=== PATIENT | female | born 1970 | race Two or more races ===

== ENCOUNTER 2022-10-30 08:14 | Outpatient (REF) | payer OTHER, SELFPAY ==
[2022-11-05 23:13] LABS: Estradiol Ultra Sensitive 4 pg/mL
== END 2022-10-30 08:15 | disposition home or self-care (01) ==
LOC: HO.LAB 08:14
PROVIDERS: Visit Provider Obstetrics & Gynecology
DX: Z78.0 Asymptomatic menopausal state (principal)
CPT/HCPCS: 36415; 82670; 83001

== ENCOUNTER 2022-11-10 10:03 | Outpatient (AMB) | payer OTHER, SELFPAY ==
[2022-11-10 09:54] VITALS: BP 114/69; PULSE 74; RESP 14; O2SAT 99; BMI 29.1
--- NOTE | 2022-11-10 09:54 | A.OFFVIS_ITS ---
Intake Vital Signs 11/10/22 09:54 Height 5 ft 4 in Weight 169 lb 6 oz BMI 29.1 BP 114/69 Blood Pressure Location Lt brachial Position Sitting Respiration 14 Pulse 74 Pulse Source Pulse Oximeter Pulse Oximetry (%) 99 Oxygen Delivery Method Room Air Intake Visit Reasons: Sacroiliac Joint Pain Allergies No Known Allergies Allergy (Verified 11/10/22 09:55) HPI HPI Comments History of Present Illness Details Miriam female presents to the office today for evaluation management of her right lower back pain. Patient reports that she has been suffering with lower back pain for many years, pain is worse today after she lifted something over the weekend. She reports the pain radiates into her buttocks, denies radiation down her lower extremities. Patient denies numbness tingling or weakness of her lower extremities. Pain today is reported as 10/10 stabbing and burning. Patient completed physical therapy approximately 6 months ago without relief. She has been taking Advil and Tylenol without relief of her symptoms. She states that years ago she had injections which significantly improved her pain. Patient denies red flag symptoms including loss of bowel, bladder or saddle anesthesia. In terms of muscle damage condition it is described as hot, burning, stabbing, sharp and squeezing. Pain is negatively impacting patient's ability to sleep, walk and perform her normal work. Review of Systems Const All systems reviewed & are unremarkable except as noted in HPI and below Physical Exam Vital Signs: Last Vital Signs Pulse 74 11/10/22 09:54 Resp 14 11/10/22 09:54 BP 114/69 11/10/22 09:54 Pulse Ox 99 11/10/22 09:54 Oxygen Delivery Method Room Air 11/10/22 09:54 BMI result Body Mass Index 29.1 General: awake, alert, oriented. Answers questions appropriately. Fully engaged in examination. Skin: warm, dry, intact HEENT: Normocephalic. Hearing intact. Cardiac: External chest normal in appearance. Respiratory: No cough, audible wheezing or stridor. Abdomen: without gross distension. MS: No obvious swelling or deformities. Able to stand on bilateral tiptoes and bilateral heels.? Able to transition from sit to stand unassisted. Ambulates with bilaterally normal heel strike and toe off Tender to palpation over right PSIS ROM: limited secondary to pain with extension to 10 degrees. flexion to 60 degrees Strength: 5/5 BLE Sensation: intact and symmetric BLE Straight leg raises with and without dorsiflexion negative bilaterally SALINA negative bilaterally Thigh thrust positive on right Gaenslens positive on right SI compression positive on right Neurological: Oriented to person, place, time and situation. Thought process intact. No gait abnormalities appreciated. Psychiatric: Appropriate mood and affect. Good judgment and insight. Assessment & Plan Assessment & Plan (1) Sacroiliac joint dysfunction of right side: Code(s): M53.3 - Sacrococcygeal disorders, not elsewhere classified Plan Miriam is a very pleasant 52-year-old female who presented to the office today for evaluation and management of her right lower back pain. History, physical exam and provocative testing consistent with right sacroiliac joint dysfunction. Patient has failed conservative treatment including physical therapy, topical ointments, NSAIDs and Tylenol. Will trial tizanidine 2 mg p.o. b.i.d. p.r.n. Discussed options for treatment including diagnostic interventional testing, steroid injections, peripheral nerve stimulation with Sprint, RFA and more permanent neuromodulation. She reports sacroiliac joint injections several years ago helped her with this pain. She would like to repeat the injection. Will schedule for therapeutic right sacroiliac joint injection with local anesthetic. All questions and concerns have been answered and patient agrees with the plan. Follow up after injections and sooner if needed. Medications: New tizanidine May cause drowsiness. Do not drive while taking this medication. Do not combine with alcohol or other [employer] depressants. 2 mg PO BID PRN 30 tabs 0RF muscle spasticity Coding Level of Care Code New Pt Level 4 (29285) Diagnoses Sacroiliac joint dysfunction of right side M53.3
== END 2022-11-10 10:16 | disposition home or self-care (01) ==
PROVIDERS: Visit Provider Registered Nurse Emergency
DX: M53.3 Sacrococcygeal disorders, not elsewhere classified (principal)
CPT/HCPCS: 99204

== ENCOUNTER → 2022-11-10 10:03 | Outpatient (BNVA) | payer OTHER, SELFPAY | PROVIDERS: Visit Provider Registered Nurse Emergency ==

== ENCOUNTER 2022-11-11 06:13 | Outpatient (REF) | payer OTHER, SELFPAY ==
--- NOTE | ~2022-11-11 | FL_ITS ---
EXAMINATION: XR FLUOROSCOPY WITH IMAGES CLINICAL INFORMATION: Sacrococcygeal disorders, not elsewhere classified. COMPARISON: None available. TECHNIQUE: Fluoroscopy Supervised By: Dr. Cordell Cha. Fluoroscopy Time: 0.0 minutes. Cumulative Dose: 1.32 mGy. DAP: 0.152 Gycm2. Images: 2. FINDINGS: Images demonstrate needle placement projecting over the right sacroiliac joint FL/FL guidance in treatment room IMPRESSION: Fluoroscopy guidance for pain management procedure
== END 2022-11-11 06:14 | disposition home or self-care (01) ==
LOC: CF 06:13
PROVIDERS: Visit Provider Internal Medicine
DX: M53.3 Sacrococcygeal disorders, not elsewhere classified (principal)
CPT/HCPCS: 27096; J1020

== ENCOUNTER 2022-11-11 10:23 | Outpatient (AMB) | payer OTHER, SELFPAY ==
[2022-11-11 10:31] VITALS: BP 120/66; PULSE 62; RESP 14; O2SAT 100
--- NOTE | 2022-11-11 10:31 | A.OFFVIS_ITS ---
Intake Vital Signs 11/11/22 10:31 11/11/22 10:58 BP 120/66 98/58 L Blood Pressure Location Lt brachial Lt brachial Position Sitting Sitting Respiration 14 14 Pulse 62 62 Pulse Source Pulse Oximeter Pulse Oximeter Pulse Oximetry (%) 100 100 Oxygen Delivery Method Room Air Room Air Intake Visit Reasons: right theraputic SIJ inj Allergies No Known Allergies Allergy (Verified 11/11/22 10:32) HPI right theraputic SIJ inj HPI Details Patient presents for scheduled procedure. Denies any recent cough, cold, infection, fever or other significant changes in medical history since last office visit. Physical Exam Vital Signs: Last Vital Signs Pulse 62 11/11/22 10:31 Resp 14 11/11/22 10:31 BP 120/66 11/11/22 10:31 Pulse Ox 100 11/11/22 10:31 Oxygen Delivery Method Room Air 11/11/22 10:31 Office Procedures Joint Injection/Drain Joint Injection/Drain Details: Sacroiliac Joint Injection, Right The procedure, its benefits, and its risks were explained and written informed consent was obtained from the patient. Immediately prior to starting the procedure, a time-out safety check was conducted. The patient's identification, procedure name, procedure site, and procedure laterality were confirmed with the patient. ? Patient was placed prone on the fluoroscopy table and the lumbosacral area was prepped using ChloraPrep and draped with sterile drape in standard fashion. The C-arm was rotated in a contralateral oblique fashion until the medial border of the iliac crest no longer foreshadowed the posterior sacroiliac joint line. The skin and subcutaneous tissue was anesthetized using 1 mL of 0.75% plain lidocaine with 1.5-inch 25-gauge needle in the middle region of the joint line.? A 3.5-inch 22-gauge spinal needle with small bend on the tip was slowly advanced towards the joint line, coaxial to the x-ray beam. Once bony content was obtained, the needle was easily slid into the intra-articular space.? Intra- articular needle position was confirmed using lateral fluoroscopy.?A total volume of 2.5mL of solution containing 40 mg Depomedrol and rest 0.5% of ropivacaine was injected intra-articularly. The stylet was reinserted and needle was removed. The patient tolerated the procedure well. Patient denied any lower extremity weakness or numbness. Patient was observed for 30 min and was discharged after fulfilling the standard discharge criteria. Coding 21806 - Sacroiliac Procedure code (CPT) selection complete Results Reviewed Results Reviewed: 11/11/22 10:40 Lidocaine HCl 2 % MPF [Xylocaine 2 % MPF] 5 ml .ROUTE .STK-MED ONE methylPREDNISolone acetate [DEPO-MedroL] 40 mg .ROUTE .STK-MED ONE Assessment & Plan Assessment & Plan (1) Sacroiliac joint dysfunction of right side: Code(s): M53.3 - Sacrococcygeal disorders, not elsewhere classified Plan Patient is status post right intra-articular SIJ steroid injection. Patient tolerated procedure well and was discharged home in stable condition with discharge instructions. All questions were answered. We will follow-up via telephone or in clinic to assess response to therapy. A follow-up appointment was made during today's visit. Coding Level of Care Code Procedure Only Diagnoses Sacroiliac joint dysfunction of right side M53.3 CPT Codes Coding - Joint 9: 51047 - Sacroiliac ([id number])
[2022-11-11 10:58] VITALS: BP 98/58; PULSE 62; RESP 14; O2SAT 100
== END 2022-11-11 11:33 | disposition home or self-care (01) ==
LOC: HO.PMCPRC 10:23
PROVIDERS: Visit Provider Internal Medicine
DX: M53.3 Sacrococcygeal disorders, not elsewhere classified (principal)
CPT/HCPCS: 27096

== ENCOUNTER 2023-01-21 11:34 | Outpatient (AMB) | payer OTHER, SELFPAY ==
--- NOTE | 2023-01-21 11:55 | AM.OFFWIN_ITS ---
Intake Vital Signs 01/21/23 11:56 Height 5 ft 4 in Weight 165 lb BMI 28.3 BP 114/60 Blood Pressure Location Rt brachial Position Sitting Pulse 72 Pulse Source Pulse Oximeter Temp 96.5 F L Temp Source Temporal Artery Scan Pulse Oximetry (%) 98 Oxygen Delivery Method Room Air Intake Visit Reasons: Needs Asthma Med ([phone]) Intake Note: Pt is here c/o asthma flare ups. Patient Tobacco Use Status: Never used Tobacco Allergies No Known Allergies Allergy (Verified 01/21/23 11:56) Do you need a note to return to daycare/school/sports/work: No HPI HPI Comments History of Present Illness Details This is a 52-year-old female with a past medical history of asthma presenting for evaluation of a cough and increasing shortness of breath. Patient states that she visited her grandson in [place] last week, they had a dog in their home which she is allergic to and she feels that this has triggered her asthma. Patient does not currently have a primary care provider of record and does not have an albuterol inhaler at home. Patient denies having any fevers, chills, chest pain, hemoptysis or sputum production. [facility] Social History Patient Tobacco Use Status: Never used Tobacco Review of Systems Const Denies chills, Denies fatigue, Denies fever(s) and Denies night sweats ENT Reports no additional complaints Card Reports no additional complaints and Reports dyspnea Resp Reports cough, Denies hemoptysis, Denies excessive phlegm production, Reports dyspnea and Denies wheezing Endo Denies fatigue Aller/Immun Denies wheezing Physical Exam Vital Signs: Last Vital Signs Temp 96.5 F L 01/21/23 11:56 Pulse 72 01/21/23 11:56 BP 114/60 01/21/23 11:56 Pulse Ox 98 01/21/23 11:56 Oxygen Delivery Method Room Air 01/21/23 11:56 BMI result Body Mass Index 28.3 Patient is not hypoxic. Const General: cooperative, healthy appearing and comfortable; No no acute distress Nutritional Appearance: average body habitus Orientation/consciousness: patient oriented x3 Limitations: no limitations HEENT Head: Yes normal to inspection Ears: hearing grossly normal bilaterally, external ears normal, TM's normal bilaterally and EAC's normal General nose exam: Normal external nose present Face and sinus: Yes normal facial exam and Yes sinuses nontender Mouth: Normal oral and palatal mucosa present Teeth and gingiva: dentition normal Throat: Yes posterior oropharynx normal Eyes Eyelids: Yes eyelids normal Conjunctivae: conjunctivae normal Sclerae: sclerae normal Corneas: corneas normal Pupils: Equal, round and reactive pupils present EOM: EOMs intact bilaterally Neck Lymphatic: no lymphadenopathy noted Resp Effort & Inspection: normal respiratory effort and able to speak in complete sentences Auscultation: clear to auscultation bilaterally, no wheezes and lung sounds not diminished Cardio Rate: regular rate Rhythm: regular rhythm Neuro General: patient oriented x3 Cranial nerves: Yes Equal, round and reactive pupils present Psych Appearance: grossly normal Mental Status: mental status grossly normal Insight: Good insight present (Psych) Judgement: Good judgement present (Psych) Assessment & Plan Assessment & Plan (1) Asthma: Code(s): J45.909 - Unspecified asthma, uncomplicated Plan Albuterol inhaler will be prescribed; patient to make an appointment for PCP intake for ongoing management. Medications: New albuterol sulfate 90 mcg/actuation 2 puffs inhalation Q6H PRN 8.5 grams 0RF shortness of breath or wheezing Coding Level of Care Code New Pt Level 3 (63952) Diagnoses Asthma J45.909 Time Spent (min) 20
[2023-01-21 11:56] VITALS: BP 114/60; PULSE 72; TEMP 35.8; O2SAT 98; BMI 28.3
== END 2023-01-21 14:43 | disposition home or self-care (01) ==
PROVIDERS: Visit Provider Physician Assistant
DX: J45.909 Unspecified asthma, uncomplicated (principal)
CPT/HCPCS: 99203

== ENCOUNTER 2023-02-02 14:28 | Outpatient (AMB) | payer OTHER, SELFPAY ==
--- NOTE | 2023-02-02 15:42 | AM.OFFWIN_ITS ---
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 She tells me she was seen here in told this may be asthma was given an albuterol inhaler with little to no relief. Patient reports travel to [place] few weeks ago however cough and symptoms were present before this. Initially she contributed her symptoms to a dog in [place] that may have worsened them however she feels like now it just this is getting worse. Patient reports her cough is nonproductive, very uncomfortable. 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 No history of DVT or PE, nonsmoker not on hormone replacement, no history of malignancy. Physical examination unremarkable patient well-appearing. This is likely bronchitis versus viral illness versus post COVID. Unlikely pulmonary embolism patient without significant risk factors, not tachycardic, hypoxic or tachypneic, well appearing. Unlikely ACS, dissection. No signs of acute respiratory distress Discharge patient home with treatment for bronchitis, antibiotics, prednisone and albuterol. Educated patient on diagnosis and treatment plan, answered all question, patient verbalizes understanding. At this time patient will be discharged home, advised to return with new or worsening symptoms. Educated on worrisome signs and symptoms and when to return. At this time I feel comfortable discharge home. [facility] Social History Patient Tobacco Use Status: Never used Tobacco Review of Systems Const Details: Constitutional : No Weight loss, No Fever, No Chills, + Fatigue, + Malaise ENT/Mouth : No sore throat, No Rhinorrhea Eyes: No Eye Pain, No Swelling, No Redness Cardiovascular : + Chest Pain, + SOB, No Dyspnea on Exertion, No Orthopnea, No Edema, No Palpitations Respiratory : + Cough, No Sputum, + Wheezing Gastrointestinal : No Nausea, No Vomiting, No Diarrhea, No Constipation, No abdominal Pain, No Hematochezia, No Melena Genitourinary : No Dysuria, No Urinary Frequency, No Hematuria, Musculoskeletal : No joint pain, No Myalgias, No Joint Swelling Skin : No Skin Lesions, No rash Neuro : No Weakness, No Numbness, No Dizziness, No Headache Psych : No Anxiety/Panic, No Depression Heme/Lymph: No Bruising, No Bleeding,No Lymphadenopathy Endocrine : No Polyuria, No Polydipsia All other systems reviewed and are negative All systems reviewed & are unremarkable except as noted in HPI and below Physical Exam Vital Signs: Last Vital Signs Temp 96.7 F L 02/02/23 15:43 Pulse 67 02/02/23 15:43 BP 120/72 02/02/23 15:43 Pulse Ox 98 02/02/23 15:43 Oxygen Delivery Method Room Air 02/02/23 15:43 BMI result Body Mass Index 28.8 Vital signs stable Appearance: Alert.? Oriented X3.? No acute distress.? Head: Normocephalic, atraumatic, no step-offs or deformities Eyes: Pupils equal, round and reactive to light.? Neck: Normal inspection.? Neck supple.? CVS: Normal heart rate and rhythm.? Pulses normal.? Respiratory: No respiratory distress.? Breath sounds normal.? Skin: Skin warm and dry.? Normal skin color.? Normal skin turgor.? Extremities: No lower extremity edema.? No calf ttp, negative homnan b/l. 5/5 strength to bilateral upper and lower extremities Back: No midline tenderness, no C-spine tenderness, full range of motion, no CVA tenderness bilaterally Neuro: Oriented X 3.? No motor deficit.? No sensory deficit. CN 2-12 intact Assessment & Plan Assessment & Plan (1) Bronchitis: Code(s): J40 - Bronchitis, not specified as acute or chronic Plan Take your medications as prescribed. If you were prescribed antibiotics today, it is important that you take your medication to their entirety, do not skip any doses, do not finish them early. Follow-up with your primary care provider this week. Return to the emergency department with new or worsening symptoms. Such as fevers, chills, chest pain, shortness of breath, nausea, vomiting, dizziness, headache, vision changes, lethargy In case of emergency call 911 Medications: New doxycycline hyclate 100 mg PO BID 14 caps 0RF 7 days prednisone 40 mg (2 x 20 mg) PO DAILY 10 tabs 0RF 5 days albuterol sulfate 90 mcg/actuation 2 puffs inhalation Q6H PRN 6.7 grams 0RF shortness of breath or wheezing Coding Level of Care Code Est Pt Level 3 (56225) Diagnoses Bronchitis J40
[2023-02-02 15:43] VITALS: BP 120/72; PULSE 67; TEMP 35.9; O2SAT 98; BMI 28.8
== END 2023-02-02 16:18 | disposition home or self-care (01) ==
PROVIDERS: Visit Provider Physician Assistant
DX: J40 Bronchitis, not specified as acute or chronic (principal)
CPT/HCPCS: 99213

== ENCOUNTER 2023-03-04 14:54 | Outpatient (AMB) | payer OTHER, SELFPAY ==
[2023-03-04 15:03] VITALS: BP 116/66; PULSE 60; RESP 16; O2SAT 97; BMI 28.7
--- NOTE | 2023-03-04 15:03 | A.OFFVIS_ITS ---
Intake Vital Signs 03/04/23 15:03 Height 5 ft 4 in Weight 167 lb BMI 28.7 BP 116/66 Blood Pressure Location Lt brachial Position Sitting Respiration 16 Pulse 60 Pulse Source Pulse Oximeter Pulse Oximetry (%) 97 Oxygen Delivery Method Room Air Intake Visit Reasons: Elbow pain Allergies No Known Allergies Allergy (Verified 03/04/23 15:03) HPI HPI Comments History of Present Illness Details On has a very pleasant 52-year-old female who presents to the office today for evaluation of management of her acute bilateral elbow pain Patient denies injury, she reports 1-2 weeks of bilateral elbow pain, left worse than the right. She states pain with certain movements of her elbow. Describes the pain as sharp. Pain is exacerbated by activities at work including carrying around a laptop but she also reports even lifting a cup causes her pain. She has been taking Advil dual without improvement of her symptoms. Pain today is rated as an 8/10, constant throughout the day. [facility] Social History Patient Tobacco Use Status: Never used Tobacco Review of Systems Const All systems reviewed & are unremarkable except as noted in HPI and below Physical Exam Vital Signs: Last Vital Signs Pulse 60 03/04/23 15:03 Resp 16 03/04/23 15:03 BP 116/66 03/04/23 15:03 Pulse Ox 97 03/04/23 15:03 Oxygen Delivery Method Room Air 03/04/23 15:03 BMI result Body Mass Index 28.7 General: awake, alert, oriented. Answers questions appropriately. Fully engaged in examination. Skin: warm, dry, intact HEENT: Normocephalic. Hearing intact. Cardiac: External chest normal in appearance. Respiratory: No cough, audible wheezing or stridor. Abdomen: without gross distension. MS: No obvious swelling or deformities. Neurological: Oriented to person, place, time and situation. Thought process intact. No gait abnormalities appreciated. Psychiatric: Appropriate mood and affect. Good judgment and insight. Extrem Right upper extremity: elbow/forearm Details: normal to inspection, tenderness and normal ROM; no swelling and no unusual warmth Left upper extremity: elbow/forearm Details: normal to inspection and normal ROM; no tenderness, no swelling and no unusual warmth Assessment & Plan Assessment & Plan (1) Left elbow pain: Code(s): M25.522 - Pain in left elbow (2) Right elbow pain: Code(s): M25.521 - Pain in right elbow Plan Miriam presented to the office today for evaluation and management of her acute bilateral elbow pain. Xray ordered for further eval Referral placed to orthopedics. Patient declines PT/OT at this time, will do HEP. Diclofenac 50mg po BID, do not take other NSAIDs Follow up after xrays, sooner if needed. Orders: Orders XR elbow LT 2V Today M25.522 - Pain in left elbow XR elbow RT 2V Today M25.521 - Pain in right elbow Referrals Orthopedics Referral M25.521 - Pain in right elbow, M25.522 - Pain in left elbow Medications: New diclofenac potassium 50 mg PO BID 30 tabs 0RF Coding Level of Care Code Est Pt Level 4 (65964) Diagnoses Left elbow pain M25.522 Right elbow pain M25.521
== END 2023-03-04 15:13 | disposition home or self-care (01) ==
PROVIDERS: Visit Provider Registered Nurse Emergency
DX: M25.522 Pain in left elbow (principal); M25.521 Pain in right elbow
CPT/HCPCS: 99214

== ENCOUNTER → 2023-03-04 14:54 | Outpatient (BNVA) | payer OTHER, SELFPAY | PROVIDERS: Visit Provider Registered Nurse Emergency ==

== ENCOUNTER 2023-03-08 11:35 | Outpatient (REF) | payer OTHER, SELFPAY ==
--- NOTE | ~2023-03-08 | XR_ITS ---
STUDY: Bilateral lower lobes INDICATION: Solid bilateral elbow pain TECHNIQUE: 3 view each elbow FINDINGS: Right: No fracture or dislocation. Calcification versus spur right lateral epicondyle. Soft tissues are unremarkable. Left: No fracture or dislocation. Mild coronoid process spurring. Question mild spurring lateral epicondyle versus calcification. TECHNIQUE: No acute bony pathology bilateral elbows. Bilateral spurring, question epicondylitis.
== END 2023-03-08 11:36 | disposition home or self-care (01) ==
LOC: HO.XRAY 11:35
PROVIDERS: Visit Provider Registered Nurse Emergency
DX: M25.522 Pain in left elbow (principal); M25.521 Pain in right elbow
CPT/HCPCS: 73070

== ENCOUNTER 2023-03-18 13:56 | Outpatient (AMB) | payer OTHER, SELFPAY ==
--- NOTE | 2023-03-18 14:04 | A.OFFVIS_ITS ---
Intake Vital Signs 03/18/23 14:05 Height 5 ft 4 in Weight 168 lb 4 oz BMI 28.9 BP 131/70 Blood Pressure Location Lt brachial Position Sitting Respiration 14 Pulse 61 Pulse Source Pulse Oximeter Pulse Oximetry (%) 99 Oxygen Delivery Method Room Air Intake Visit Reasons: discuss xray results Allergies No Known Allergies Allergy (Verified 03/18/23 14:04) HPI HPI Comments History of Present Illness Details Miriam presents back to the office today for follow up, review of recent XRays Bilateral elbow xrays reviewed, results as per below. Patient reports pain persists, she has been taking the diclofenac with improvement. Pain today 5/10. She does not have an appt with orthopedics yet, she will reach out to their office to schedule. Prior: Miriam is a very pleasant 52-year-old female who presents to the office today for evaluation of management of her acute bilateral elbow pain Patient denies injury, she reports 1-2 weeks of bilateral elbow pain, left worse than the right. She states pain with certain movements of her elbow. Describes the pain as sharp. Pain is exacerbated by activities at work including carrying around a laptop but she also reports even lifting a cup causes her pain. She has been taking Advil dual without improvement of her symptoms. Pain today is rated as an 8/10, constant throughout the day. [facility] Social History Patient Tobacco Use Status: Never used Tobacco Review of Systems Const All systems reviewed & are unremarkable except as noted in HPI and below Physical Exam Vital Signs: Last Vital Signs Pulse 61 03/18/23 14:05 Resp 14 03/18/23 14:05 BP 131/70 03/18/23 14:05 Pulse Ox 99 03/18/23 14:05 Oxygen Delivery Method Room Air 03/18/23 14:05 BMI result Body Mass Index 28.9 General: awake, alert, oriented. Answers questions appropriately. Fully engaged in examination. Skin: warm, dry, intact HEENT: Normocephalic. Hearing intact. Cardiac: External chest normal in appearance. Respiratory: No cough, audible wheezing or stridor. Abdomen: without gross distension. MS: No obvious swelling or deformities. Neurological: Oriented to person, place, time and situation. Thought process in tact. No gait abnormalities appreciated. Psychiatric: Appropriate mood and affect. Good judgment and insight. Extrem Right upper extremity: elbow/forearm Details: normal to inspection, tenderness and normal ROM; no swelling and no unusual warmth Left upper extremity: elbow/forearm Details: normal to inspection and normal ROM; no tenderness, no swelling and no unusual warmth Results Reviewed Results Reviewed: 03/08/2023 Bilateral elbow XR FINDINGS: Right: No fracture or dislocation. Calcification versus spur right lateral epicondyle. Soft tissues are unremarkable. Left: No fracture or dislocation. Mild coronoid process spurring. Question mild spurring lateral epicondyle versus calcification. TECHNIQUE: No acute bony pathology bilateral elbows. Bilateral spurring, question epicondylitis. Assessment & Plan Assessment & Plan (1) Left elbow pain: Code(s): M25.522 - Pain in left elbow (2) Right elbow pain: Code(s): M25.521 - Pain in right elbow Plan Miriam presented to the office today for follow up bilateral elbow pain. Xray results reviewed, as per above Per workload ortho has attempted several times to reach patient to schedule appt without success; she will contact their office to make an appt. Patient declines PT/OT at this time, will do HEP. Advised on stretches to perform for epicondylitis. Diclofenac 50mg po BID, do not take other NSAIDs. Refill sent today. Follow up as needed. Medications: Changed From diclofenac potassium 50 mg PO BID 30 tabs 0RF To diclofenac potassium 50 mg PO BID 30 days 60 tabs 0RF Coding Level of Care Code Est Pt Level 4 (17037) Diagnoses Left elbow pain M25.522 Right elbow pain M25.521
[2023-03-18 14:05] VITALS: BP 131/70; PULSE 61; RESP 14; O2SAT 99; BMI 28.9
== END 2023-03-18 14:19 | disposition home or self-care (01) ==
PROVIDERS: Visit Provider Registered Nurse Emergency
DX: M25.522 Pain in left elbow (principal); M25.521 Pain in right elbow
CPT/HCPCS: 99214

== ENCOUNTER → 2023-03-18 13:56 | Outpatient (BNVA) | payer OTHER, SELFPAY | PROVIDERS: Visit Provider Registered Nurse Emergency ==

== ENCOUNTER 2023-05-17 12:40 | Outpatient (AMB) | payer OTHER, SELFPAY ==
--- NOTE | 2023-05-17 12:49 | A.OFFVIS_ITS ---
Intake Vital Signs 05/17/23 12:55 Height 5 ft 4 in Weight 168 lb BMI 28.8 Handedness Right Intake Visit Reasons: New Pt -Left elbow pain Intake Note: Miriam is a 53 year old right hand dominant female who presents today as a new patient for a evaluation for her left elbow pain. Patient reports ongoing pain for 2 + months. She states that her pain is worse at night. Currently, she is having a lot of pain in her elbow. She reports that her arm feels when she is performing her activates at work/home. Hx of taking diclofenac which is not giving her relief. Patient was seen at [facility] on 03/18/23 for her elbow. They did X rays on her left elbow and it stated that she has tennis elbow. Patient is interested to get an injection if possible. Allergies No Known Allergies Allergy (Verified 05/17/23 12:54) HPI New Pt -Left elbow pain HPI Details 52 yo female presents with left elbow pa in x 2 months. She states the pain is worse with activity. She does feel the pain goes up and down the arm with certain motions. She was seen by pain mgmnt. She was not referred to formal therapy. She has tried voltaren and advil without relief. Denies numbness or tingling. 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 No erythema or swelling. ROM full without pain. Tenderness over the lateral epicondyle and pain with resisted wrist extension. NVI. Office Procedures Joint Injection/Drain Joint Injection/Drain Primary Site: left tennis elbow Prep: site was prepped using aseptic technique, ethochloride spray was applied and injection warnings given Injected: 40 mg of, with 1 mL of, 1% plain lidocaine and decadron Procedure: The patient tolerated the procedure well and there was some relief with the local anesthesia Coding 54540 - Epicondyle Procedure code (CPT) selection complete Assessment & Plan Assessment & Plan (1) Epicondylitis, lateral, left: Code(s): M77.12 - Lateral epicondylitis, left elbow Plan: We discussed options today, which include steroid injection. The patient did consent to move forward with the injection, which was tolerated well.?She was also given an order for OT. I recommended rest, ice and elevation and OTC antiinflammatories prn for discomfort. If symptoms persist over the next 6-8 weeks, they will contact our office, otherwise, prn Orders: Orders OT Evaluation and Treatment Today M77.12 - Lateral epicondylitis, left elbow Coding Level of Care Code New Pt Level 3 (56809) Diagnoses Epicondylitis, lateral, left M77.12 CPT Codes Coding - Joint 2: 16367 - Epicondyle ([id number])
[2023-05-17 12:55] VITALS: BMI 28.8
== END 2023-05-17 13:38 | disposition home or self-care (01) ==
PROVIDERS: Visit Provider Physician Assistant
DX: M77.12 Lateral epicondylitis, left elbow (principal)
CPT/HCPCS: 20550; 99203

== ENCOUNTER → 2023-05-17 12:40 | Outpatient (BNVA) | payer OTHER, SELFPAY | PROVIDERS: Visit Provider Physician Assistant | DX: M77.12 Lateral epicondylitis, left elbow (principal) | CPT/HCPCS: 20550; J1100; J3301 ==

== ENCOUNTER 2023-06-10 11:00 | Outpatient (RCR) | payer OTHER, SELFPAY ==
--- NOTE | 2023-06-03 13:22 | MHC.OT.OEV ---
[address] [phone] F: [phone] Occupational Therapy Evaluation Patient Name: Miriam Whitehead Diagnosis: (L)Lateral Epicondylitis Date of Onset: 05/17/23 Date of Surgery: Attending Provider: Neela Ocampo Prescribed Treatment: MD Follow Up Appointment: History of Current Condition: Patient is 53 year old right handed female with no significant medical history who reported sharp pain at the lateral condyle that travels down to forearm and has numbness/ tingling in her fingers for the last 2 months. She was referred by SAJAN Metcalf with a diagnosis of (L)Lateral Epicondylitis. Significant Medical History: No significant medical history Precautions/Contraindications: Patient Goals: To get ride of this pain. 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 Sleep: Pain is waking patient up at night Driving: (I) Vision: Balance: Pain Assessment Pain Score: 10 Pain Scale Used: Numeric (0 - 10) Pain Location and Description: (R)lateral condyle sharp pain 5/10 at rest- dull, 10/10 during activity - reports she will drop items Aggravating Factors: Alleviating Factors: Heat, ibuprofen, Aleve, trialed Counter Force Brace Skin and Soft Tissue Assessment Skin and Soft Tissue: Comments: Intact Nerve assessment Ulnar Nerve: Median Nerve: Radial Nerve: Left Impaired Comments: (+)Tinel's Sensory Assessment Temperature: Light Touch: Proprioception: Vibration: Comments: Monofilament test- WFLs Edema Assessment Upper Extremity: WNL Lower Extremity: Comments: Dexterity Assessment Dexterity: WFL Comments: Functional Dexterity Test= (L)24.14 seconds Special Tests Comments: Tinel's (+) Mill's Test (-) Cozen's Test(-) AROM(PROM) Strength Cervical Cervical Flexion: Cervical Extension: Cervical Lateral Flexion: Cervical Rotation: Comments: Shoulder Flexion: Extension: Abduction: Internal Rotation: External Rotation: Comments: WFL Flexion: Extension: Abduction: Internal Rotation: External Rotation: Comments: 4/5 Elbow Flexion: Extension: Pronation: Supination: Comments: WFL Flexion: Extension: Pronation: Supination: Comments: 4/5 Wrist Flexion: Extension: Ulnar Deviation: Radial Deviation: Comments: WFL Flexion: Extension: Ulnar Deviation: Radial Deviation: Comments: 4/5 Thumb Thumb CMC Flexion: Thumb MCP Flexion: Thumb IP Flexion: Radial Abduction: Palmar Abduction: Macy (Kapandji 0-10): Comments: WFL Digits Index MCP: PIP: DIP: Long MCP: PIP: DIP: Ring MCP: PIP: DIP: Small MCP: PIP: DIP: Comments: WFL Gross Grasp: 51.6lbs. (R), 26.6lbs (L) Lateral Pinch: 13 Two-Point Pinch: 7 Three-Jaw Hugh: 7 Comments: Patient Education Primary Language: Personal Trainer Required: Current Knowledge: Teaching Method: Education Needs Identified on Evaluation: How did patient/family demonstrate learning? Barriers to Learning: Readiness for Learning: Who was educated? Comments: Plan of Care Assessment: Patient is 53 year old women who reports pain of the (L)elbow and has had symptoms for approximately 2 months. 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 She lives in a 2 level single family home with her son, [id number] and their 2 children. She did state that she uses her (L)UE to hold her lap top while at work. Currently she reports difficulty with self care tasks such as blow drying her hair and squeezing the mop. She has a Counter Force Brace but reports it is painful and does not wear it. Based on initial evaluation patient's skin is intact with no edema present. Patient's shoulder, elbow, wrist and fingers are WFLs, however she does report in the shoulder during movement. Patient's (L) junior systems engineer strength is under for patient's age and gender as she achieved 26.6lbs. Her coordination is WFL. Provocative Testing: Tinel's (+), Mill's (-), Cozen's (-). Quick DASH= 47.7% indicating patient's perception of UE impairment during self care tasks. Patient's CLOF is min(A) as patient presents with pain, impaired strength and impaired performance during self care tasks. Due to the documented impiarments it is recommended that patient receive skilled OT intervention in order for patient to achieve her PLOF of (I). Thank you for your referral. STG Duration: 2 weeks Short Term Goals: Patient will report 8/10 pain in (L)elbow Patient will be (I) with pain management strategies patient will increase (L) junior systems engineer strength by 5lbs. LTG Duration: 4 weeks Correction Goals: Patient will report 0/10 pain Patient was be (I) with HEP Frequency and Duration: The patient will be seen 2x a week for 4 weeks Treatment Plan: Therapeutic Exercise Therapeutic Activity Home Exercise Program Patient Education ADL Training Ultrasound Iontophoresis Paraffin Fluidotherapy MHP Cold Packs Kinesiotaping Skilled OT eval and treatment Electronically Signed By: Gricelda Hodges OTR/L, CLT Reviewed/agree with student documentation: Therapist: Please sign and return to therapist, Thank you for your referral.
--- NOTE | 2023-06-24 13:55 | MHC.OT.DC ---
[address] [phone] F: [phone] Occupational Therapy Discharge Note Patient Name: Miriam Whitehead Provider: Neela Ocampo Diagnosis: (L)Lateral Epicondylitis Date of Surgery: Date of Evaluation: 06/03/23 Date of Discharge: Treatments to Date: 2 Cancellations to Date: No Shows to Date: 3 Discharge Status: Visit Non-compliance Discharge Summary: Miriam reported left elbow pain improved from 12/01 to 07/01 Electronically Signed By: Nell Lake OT CHT CLT Reviewed/agree with student documentation: Therapist: Please Sign and return to therapist, thank you for your referral.
== END 2023-06-24 13:55 | disposition home or self-care (01) ==
LOC: HO.OT 11:00
PROVIDERS: Visit Provider Physician Assistant
DX: M77.12 Lateral epicondylitis, left elbow (principal)
CPT/HCPCS: 97035; 97110; 97165

== ENCOUNTER 2023-10-08 10:53 | Outpatient (AMB) | payer OTHER, SELFPAY ==
[2023-10-08 10:57] VITALS: BP 126/68; PULSE 59; BMI 29.4
--- NOTE | 2023-10-08 10:57 | A.OFFVIS_ITS ---
Vital Signs 10/08/23 10:57 Height 5 ft 4 in Weight 171 lb 4.787 oz BMI 29.4 BP 126/68 Blood Pressure Location Rt brachial Position Sitting Pulse 59 Pulse Source Pulse Oximeter Intake Visit Reasons: Weight loss/confirmed Intake Note: New patient present today for Weight loss. Solutions Delivery Consultant Required: No Accompanied by: Self / Same As Patient Allergies No Known Allergies Allergy (Verified 10/08/23 10:58) Medication List - Last Reconciled 10/08/23 by Jane Estrada PA-C albuterol sulfate 90 mcg/actuation 2 puffs inhalation Q6H PRN HPI HPI Weight loss/confirmed: Details: patient is a 53-year-old female presents today to establish care regarding concerns of elevated blood sugars. 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 She does not have a glucometer with her today but states that she has noticed a couple readings around 120. She is not sure if this was fasting or not. She checked because she has noticed increased thirst. she states that she also made this appointment because she wants to avoid developing diabetes if she does not have this. She wants to try will go be for weight loss. She is very frustrated with her weight. Her weight causes joint pains. She has a history of back issues and states that this extra weight causes pain. She uses diclofenac as needed. She has tried atkins, [place], weight watchers, fat burner otc pills, and phentermine in the past. She has lost a few lbs temporarily. Fam hx of t2dm with 6 siblings and both parents and grandparents. Both parents have heart disease, father had IN. 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 Physical Exam Vital Signs: Last Vital Signs BP 126/68 10/08/23 10:57 BMI result Body Mass Index 29.4 Const Orientation/consciousness: patient oriented x3 HEENT Ears: hearing grossly normal bilaterally Neck Thyroid: Thyroid normal Lymphatic: no lymphadenopathy noted Resp Auscultation: clear to auscultation bilaterally Cardio Rate: regular rate Rhythm: regular rhythm Heart sounds: S1 normal heart sound present and S2 normal heart sound present GI Inspection: Yes normal to inspection Palpation (GI): Soft to palpation and Other GI palpation findings present (nontender, no cva tenderness) Auscultation: normoactive bowel sounds Rectal Exam - Female: deferred Skin General skin exam: no rashes or lesions noted Neuro General: patient oriented x3, gait normal and no focal motor deficits Assessment & Plan Assessment & Plan (1) IFG (impaired fasting glucose): Code(s): R73.01 - Impaired fasting glucose Category: Medical Plan: a1c ordered. will follow up pending test results. (2) Weight gain: Code(s): R63.5 - Abnormal weight gain Category: Medical Plan: will start wegovy. labs ordered. will follow up pending test results. (3) Overweight (BMI 25.0-29.9): Code(s): E66.3 - Overweight Category: Medical Plan: as above. encouraged to continue with low carb and exercise. Plan overdue mammo. ordered today. Orders: Orders Thyroid Stimulating Hormone Today E66.3 - Overweight, R63.5 - Abnormal weight gain, R73.01 - Impaired fasting glucose Complete Blood Count Auto Diff Today E11.42 - Type 2 diabetes mellitus with diabetic polyneuropathy, E66.3 - Overweight, R63.5 - Abnormal weight gain, R73.01 - Impaired fasting glucose Lipid Panel Today E66.3 - Overweight, R63.5 - Abnormal weight gain, R73.01 - Impaired fasting glucose MM screening mammo BI Today Z12.31 - Encounter for screening mammogram for malignant neoplasm of breast Comprehensive [place]. Panel Fast Today E66.3 - Overweight, R63.5 - Abnormal weight gain, R73.01 - Impaired fasting glucose Hemoglobin A1c Today E66.3 - Overweight, R63.5 - Abnormal weight gain, R73.01 - Impaired fasting glucose Medications: New semaglutide (weight loss) (Wegovy) administer weeks 1 through 4 of therapy 0.25 mg (0.5 mL) subcut QWEEK 2 mL 1RF Coding Level of Care Code New Pt Level 3 (48366) Complex EM visit Add On G2211 Diagnoses IFG (impaired fasting glucose) R73.01 Weight gain R63.5 Overweight (BMI 25.0-29.9) E66.3
== END 2023-10-11 15:04 | disposition home or self-care (01) ==
PROVIDERS: Visit Provider Physician Assistant
DX: R73.01 Impaired fasting glucose (principal); R63.5 Abnormal weight gain; E66.3 Overweight
CPT/HCPCS: 99203

== ENCOUNTER → 2023-10-08 10:53 | Outpatient (BNVA) | payer OTHER, SELFPAY | PROVIDERS: Visit Provider Physician Assistant ==

== ENCOUNTER 2023-10-11 08:44 | Outpatient (REF) | payer OTHER, SELFPAY ==
[2023-10-11 09:28] LABS: Hematocrit 40.2 % (37.0-47.0); Hemoglobin 12.3 g/dl (12.0-16.0); Mean Corpuscular HGB Conc 30.6 g/dl (31.0-35.0); Mean Corpuscular Hemoglobin 27.3 pg (27.0-33.0); Mean Corpuscular Volume 89.1 fL (80.0-98.0); Mean Platelet Volume 11.9 fL (9.4-12.3); Platelet Count 238 X10*3/uL (160-400); Red Blood Count 4.51 X10*6/uL (4.20-5.50); Red Cell Distribution Width 14.4 % (11.0-16.0); White Blood Count 6.4 X10*3/uL (4.8-10.8)
[2023-10-11 09:38] LABS: Estimated Average Glucose 105 mg/dL; Hemoglobin A1c % 5.3 % (<6.0)
[2023-10-11 10:28] LABS: Alanine Aminotransferase 27 U/L (0-31); Albumin Level 4.1 g/dL (3.5-5.0); Alkaline Phosphatase 60 U/L (39-117); Anion Gap 9 (12-20); Aspartate Amino Transferase 28 U/L (5-31); Bilirubin Total 0.4 mg/dL (0.0-1.0); Blood Urea Nitrogen 8 mg/dL (9-16); Calcium 9.6 mg/dL (8.4-10.2); Carbon Dioxide 28 mmol/L (22-29); Chloride 109 mmol/L (96-108); Cholesterol 200 mg/dL (<200); Estimated Glomerular Filt Rate > 60; Glucose Fasting 89 mg/dL (60-99); HDL Cholesterol 54 mg/dL (>40); LDL Cholesterol Calculated 123 mg/dL (<100); Potassium 4.3 mmol/L (3.3-5.1); Sodium 142 mmol/L (135-145); Triglycerides 115 mg/dL (<150)
[2023-10-11 10:36] LABS: Thyroid Stimulating Hormone 1.97 uIU/mL (0.32-4.0)
[2023-10-11 10:53] LABS: Atypical Lymph Absolute Manual 0.1 x10*3/uL; Atypical Lymphs Percent Manual 1 % (0-6); Band Neutrophils Percent 0 % (3-5); Eosinophils Absolute Manual 0.1 X10*3/uL (0.0-0.4); Eosinophils Percent Manual 1 % (0-4); Lymphocytes Absolute Manual 3.6 X10*3/uL (1.2-4.9); Lymphocytes Percent Manual 57 % (20-40); Monocytes Absolute Manual 0.3 X10*3/uL (0.1-1.2); Monocytes Percent Manual 5 % (2-11); Neutrophils Absolute Manual 2.3 X10*3/uL (2.0-8.3); Neutrophils Percent Manual 36 % (45-73)
[2023-10-11 10:54] LABS: Hypochromasia 1+ (5-14) /OIF; Platelet Estimate NORMAL (NORMAL); RBC Morphology NOTED
[2023-10-11 10:55] LABS: Platelet Morphology Comment NORMAL
== END 2023-10-11 08:45 | disposition home or self-care (01) ==
LOC: HO.LAB 08:44
PROVIDERS: Visit Provider Physician Assistant
DX: R73.01 Impaired fasting glucose (principal); R63.5 Abnormal weight gain; E66.3 Overweight
CPT/HCPCS: 36415; 80053; 80061; 83036; 84443; 85007; 85025; 85027

== ENCOUNTER → 2024-02-10 07:30 | Outpatient (BNV) | payer OTHER, SELFPAY | PROVIDERS: PCP Physician Assistant; Visit Provider Internal Medicine | DX: Z12.31 Encounter for screening mammogram for malignant neoplasm of breast (principal) | CPT/HCPCS: 77063; 77067 ==

== ENCOUNTER 2024-02-10 07:32 | Outpatient (REF) | payer OTHER, SELFPAY ==
--- OUTSIDE RECORDS SUMMARY | 2024-02-10 07:34 | XMS_ITS ---
Author Organization [facility] Address [address] [place] [id number] Care Team Providers Care Internet Project Manager Name Role Phone JINA BURNHAM Unavailable [phone] Encounters Encounter Location Date Provider Diagnosis [facility] [address] [facility] [address] [place] [address] 12/31/2022 JINA BURNHAM ASSESSMENTS Encounter Date Diagnosis Assessment Notes Treatment Notes Treatment Clinical Notes Section Notes 12/31/2022 Patient seen and examined. Comprehensive discussion was done on the following. Patient was reassured and welcomed to the practice. We discussed that we stress a hollistic medical approach with emphasis on lifestyle modification. Patient was informed that a healthy lifestyle with exercise and good eating habits can help reduce his risk of medical complications. He is explained that obesity increases his risk of diabetes, cardiovascular disease, or organ damage. 1. Nutrition: It is important to follow a healthy diet based on lots of vegetables and legumes and good fat. Avoid processed food and processed carbohydrates. Learn to prepare your own meals. Learn to read labels and avoid high fructose corn syrup, processed chemicals added to increase shelf life and preprepared meals. Avoid fast foods. Learn to eat slowly and plan meals for a week. Try to count calories and be mindful off daily calorie intake. Get into the habit of keeping an eye on your weight by using an appropriate scale. Learn to log exercise and discussed fitness Apps like [employer] which can help keep log off calories taken versus calories burned. Local food should be preferred. Discussed Dirty Dozen Versus Clean Fifteen. Discussed healthy supplements like fish oil, Tumeric, Curcumin, Melatonin, Resveratrol, Probiotics, Vitamin-D, Alpha-Lipoic acid, Vitamin-D and coconut oil. 2. It is important to exercise regularly. Is a good habit to walk at least 30-45 minutes a day. Gentle weightlifting with standard precautions to protect the back. Finding activity like cycling or hiking and get into the habit of engaging in it. Stretching before and after the exercises important. It is also important to contact me if there are any problems like shortness of breath, chest pain, back pain and joint or muscle pain associated with the exercise. 3. Discussed age appropriate screening guidelines. Colonoscopy needs to start at age 45 with stool for occult blood as appropriate. There is a new test that can test for genetic abnormalities in the stool sample. This would not replace a colonoscopy but could be used as a screening tool for patients who do not want a colonoscopy. We discussed the importance of early detection of colon cancer. 4. Discussed current guidelines with respect to breast examination, mammogram and pap smear for early detection of breast and cervical cancer gender specific (if FEMALE) . Patient advised to follow up with these appointments, gender specific/age specific of course if applicbale 5. Discussed safe driving and no use of smart phone while driving 6. Age-appropriate immunizations were discussed. A tetanus booster is needed every 10 years. Flu vaccine is recommended every year just before the start of the flu season. Shingles vaccine is recommended after age 50 but not all insurances cover it. Pneumonia vaccine is given after age 65 unless there are certain comorbidities for which it is started earlier. Newly approved RSV vaccine was discussed COVID booster as well 7. Diagnostic labs were discussed. These could include CBC CMP and lipids with fasting blood glucose and insulin levels. Vitamin D and hemoglobin A1c testing might be appropriate PSA screening and false negatives. 8.. MOLST/HCP paperwork discussed, neurocognitive assesment if appropriate/judith baxter Of note, some information is being carried forward from prior records for informational purposes only and is being cited so that efficiency, safety and quality of the patient's care is not compromised This note was prepared using voice recognition software and direct typing Please excuse inadvertent set up mechanic stamping machines or typing errors, or uncorrected word substitutions Although every attempt has been made by the provider to proofread this document, occasional misspellings and typographical errors may still be present Due to the previous pandemic, and the use of personal protective equipment (PPE) This may decrease voice recognition accuracy Inadvertent set up mechanic stamping machines errors may occur PLAN OF TREATMENT No Information Progress Notes * Miriam HERNANDEZDOB:1970 ( 53 yo F)Acc No.[id number]:12/31/2022 Progress Notes Patient:??Miriam HERNANDEZ Provider:??JINA BURNHAM NP :1970?Age:52 Y?Sex:Fe male Date:12/31/2022 Address[address] [id number] Subjective: * Chief Complaints: * ? * HPI: ?Constitutional:? Patient is here today for a new patient visit and to establish care ?Full past medical history, social history, family history, ?allergies and current medications were reviewed and updated. ?New patient packet was reviewed which includes ? PHQ 9 scale for depression screening, social history, family history, ?medical history, surgical history ?They are coming to us from previous practice, ?Acute Concerns: ?Social Hx ?Health Maintenance: ?COVID MRNA ?Flu 2022 ?TDAP ?Gyno/Pap ?Mammography ?Cscope ?DXA ?Shingrix ?Pneumovax. * ROS:?All Other Systems:?Review of Systems (ROS)??All others negative except those mentioned in HPI.? * Medical History:?? Objective: * Examination: ?General Examination: ?GENERAL APPEARANCE:??in no acute distress, well developed, well nourished.??HEAD:??normocephalic, atraumatic.??EYES:??pupils equal, round, reactive to light and accommodation.??EARS:??normal.??ORAL CAVITY:??mucosa moist.??THROAT:??clear.??NECK/THYROID:??neck supple, full range of motion, no cervical lymphadenopathy.??SKIN:??no suspicious lesions, warm and dry.??HEART:??no murmurs, regular rate and rhythm, S1, S2 normal.??LUNGS:??clear to auscultation bilaterally.??ABDOMEN:??normal, bowel sounds present, soft, nontender, nondistended.??EXTREMITIES:??no clubbing, cyanosis, or edema.??NEUROLOGIC:??nonfocal, motor strength normal upper and lower extremities, sensory exam intact.? Assessment: * Assessment: Patient seen and examined. C omprehensive discussion was done on the following. Patient was reassured and welcomed to the practice. We discussed that we stress a hollistic medical approach with emphasis on lifestyle modification. Patient was informed that a healthy lifestyle with exercise and good eating habits can help reduce his risk of medical complications. He is explained that obesity increases his risk of diabetes, cardiovascular disease, or organ damage. 1. Nutrition: It is important to follow a healthy diet based on lots of vegetables and legumes and good fat. Avoid processed food and processed carbohydrates. Learn to prepare your own meals. Learn to read labels and avoid high fructose corn syrup, processed chemicals added to increase shelf life and preprepared meals. Avoid fast foods. Learn to eat slowly and plan meals for a week. Try to count calories and be mindful off daily calorie intake. Get into the habit of keeping an eye on your weight by using an appropriate scale. Learn to log exercise and discussed fitness Apps like [employer] which can help keep log off calories taken versus calories burned. Local food should be preferred. Discussed Dirty Dozen Versus Clean Fifteen. Discussed healthy supplements like fish oil, Tumeric, Curcumin, Melatonin, Resveratrol, Probiotics, Vitamin-D, Alpha-Lipoic acid, Vitamin-D and coconut oil. 2. It is important to exercise regularly. Is a good habit to walk at least 30-45 minutes a day. Gentle weightlifting with standard precautions to protect the back. Finding activity like cycling or hiking and get into the habit of engaging in it. Stretching before and after the exercises important. It is also important to contact me if there are any problems like shortness of breath, chest pain, back pain and joint or muscle pain associated with the exercise. 3. Discussed age appropriate screening guidelines. Colonoscopy needs to start at age 45 with stool for occult blood as appropriate. There is a new test that can test for genetic abnormalities in the stool sample. This would not replace a colonoscopy but could be used as a screening tool for patients who do not want a colonoscopy. We discussed the importance of early detection of colon cancer. 4. Discussed current guidelines with respect to breast examination, mammogram and pap smear for early detection of breast and cervical cancer gender specific (if FEMALE) . Patient advised to follow up with these appointments, gender specific/age specific of course if applicbale 5. Discussed safe driving and no use of smart phone while driving 6. Age-appropriate immunizations were discussed. A tetanus booster is needed every 10 years. Flu vaccine is recommended every year just before the start of the flu season. Shingles vaccine is recommended after age 50 but not all insurances cover it. Pneumonia vaccine is given after age 65 unless there are certain comorbidities for which it is started earlier. Newly approved RSV vaccine was discussed COVID booster as well 7. Diagnostic labs were discussed. These could include CBC CMP and lipids with fasting blood glucose and insulin levels. Vitamin D and hemoglobin A1c testing might be appropriate PSA screening and false negatives. 8.. MOLST/HCP paperwork discussed, neurocognitive assesment if appropriate/warranted Of note, some information is being carried forward from prior records for informational purposes only and is being cited so that efficiency, safety and quality of the patient's care is not compromised This note was prepared using voice recognition software and direct typing Please excuse inadvertent set up mechanic stamping machines or typing errors, or uncorrected word substitutions Although every attempt has been made by the provider to proofread this document, occasional misspellings and typographical errors may still be present Due to the previous pandemic, and the use of personal protective equipment (PPE) This may decrease voice recognition accuracy Inadvertent set up mechanic stamping machines errors may occur. Plan: * Treatment: * Procedure Codes:??42173 NO S HOW OFFICE VISIT * Images: Billing Information: * Visit Code:?? * Procedure Codes:?? 45535 NO SHOW OFFICE VISIT. * Sign off status: Pending * Provider:??JINA BURNHAM NP Date:??10/2022 History and Physical Notes * HPI (History of Present Illness) Category Sub-Category Detail Notes Category Not es Constitutional Patient is here today for a new patient visit and to establish care Full past medical history, social history, family history, allergies and current medications were reviewed and updated. New patient packet was reviewed which includes PHQ 9 scale for depression screening, social history, family history, medical history, surgical history They are coming to us from previous practice, Acute Concerns: Social Hx Health Maintenance: COVID MRNA Flu 2022 TDAP Gyno/Pap Mammography Cscope DXA Shingrix Pneumovax Examination Category Sub-Category Detail Notes Category Not es General Examination GENERAL APPEARANCE: in no ac sendy distress, well developed, well nourished HEAD: normocephalic, atrau matic EYES: pupils equal, round, reactive to light and accommodation EARS: normal THROAT: clear NECK/THYROID: neck supple, full ra nge of motion, no cervical lymphadenopathy HEART: no murmurs, regular rate and rhythm, S1, S2 normal LUNGS: clear to auscultatio n bilaterally ABDOMEN: normal, bowel sounds present, soft, nontender, nondistended NEUROLOGIC: nonfocal, motor stre ngth normal upper and lower extremities, sensory exam intact SKIN: no suspicious lesion s, warm and dry EXTREMITIES: no clubbing, cyanosi s, or edema ORAL CAVITY: mucosa moist
--- OUTSIDE RECORDS SUMMARY | 2024-02-10 07:34 | XMS_ITS ---
Author Organization [facility] Address [address] [place] [address] Care Team Providers Care Berry Picker Name Role Phone JINA BURNHAM Unavailable [phone] Encounters Encounter Location Date Provider Diagnosis [facility] [address] [facility] [address] [place] [address] 01/05/2023 JINA BURNHAM ASSESSMENTS Encounter Date Diagnosis Assessment Notes Treatment Notes Treatment Clinical Notes Section Notes 01/05/2023 Total time spent today was 60 minutes of which greater than 50% was spent on coordinating and counseling We are a board certified obesity and weight management practice Patient has trialed behavioral modification, dietary restrictions and exercise for a minimum of 3 months Patient counseled regarding effects of GLP/GIP-1 agonists, and other FDA approved wgt loss meds with regards to a multifactorial approach of weight loss as mentioned above and not solely appetite suppression. We have discussed the mechanism of GLP-1's/GIP, dual incretins I think this would be fantastic option for her given her metabolic workup and body composition We have discussed the risks and benefits and side effects including/and not limited to Sarcopenia, intestinal obstruction, constipation, nausea, lethargy, headache Discussed importance of protein consumption for muscle maintenance as well as strength and resistance training ,probiotics, B12 complex biotin , iron and other nutrients, To help avoid telogen effluvium There is no history of medullary thyroid cancer or multiple endocrine neoplasia There is also no history of cardiovascular disease, hypertension, palpitations, or arrhythmias In the setting of potential stimulant/amphetami ne use such as phentermine We have also discussed risks and benefits, and the use of compounded medications to help offset the national shortages as well as financial implications vs trade name drugs GLP must be discontinued upon initiation We have discussed the lifelong requirement of nutritional supplementation And adherence to an exercise regimen as well as importance of follow-up The patient understands and agrees Patient has been found to be obese with a BMI of (). Patient has class () obesity. Patient was reassured and welcomed to the practice. We discussed that we stress a hollistic medical approach with emphasis on lifestyle modification. Patient was informed that a healthy lifestyle with exercise and good eating habits can help reduce his risk of medical complications. He is explained that obesity increases his risk of diabetes, cardiovascular disease, or organ damage. We spent a lot of time discussing the relationship between food, exercise, sleep, mental health and obesity. Patient was counseled on the importance EATING local, organic food when possible. Patient was educated on clean 15 and dirty dozen. I provided information about reading books called The Food Rules by Amaury Toth and Eat Fat Get Lean by Dr Baldomero Hamilton. Self education is important in the journey for weight management. Patient was offered diagnostic testing. We want to measure visceral adiposity, advanced body composition, adverse lipids, fatty acid balance, risk for heart disease and atherosclerosis, markers of inflammation and genetic susceptibility. Patient was counseled on weight management and was advised to lose weight using A. Meal Replacement Products We discussed the lifelong requirement of nutritional supplementation and adherence to an exercise regimen as well as importance of dietary f/u Patient was educated on the replacement products called optifast. This is a good way of taking fixed amount of calories. It has been shown in studies to be ineffective weight management tool. We also recommend maintaining adequate protein intake and muscle composition, 1.5mg/kg This however has to be coupled with lifestyle intervention as well as laboratory data and EKG monitoring. It is impossible to know how a person will tolerate complete meal replacement. The side effects of meal replacement and weight loss could include syncopal attacks, dizziness, gallstones, potential cholecystectomy, possible heart attack and even . The benefits of meal replacement would be potential weight loss but no guarantees can be made. Meal replacement products are not covered by insurance. Once the patient has bought these products we cannot return them B. Lifestyle management which includes several strategies as below 1. Eat a low carbohydrate good fat good protein diet. Eliminate refined carbohydrates from the diet. Continue blood sugar and sugared beverages. Eat local organic when possible. Cook your own meals. Read food labels. None about healthy snacks. Portion control and food with low glycemic index 2. Exercise regularly. Try to get at least 6000 steps a day. Use a predominant to track activity level. Consider using apps like Adallom, myfitnesspal, lose it, stick as needed for self-monitoring and weight management. Consider group exercises. Consider hiring a personal security specialist. Regular exercise is correa to sustainable health and prevents as a buffer against weight regain 3. Sleep is most important for healing. Tried to sleep at least 8 hours a night. A good quality sleep needs a sleep ritual with ideal room temperature of around 68. It might help to take a shower and have no electronics in the room and sleep in a very dark room without artificial light. Start her sleep routine and get up early in the morning and go to bed on time 4. Make a social connection. Surround yourself with positive people with positive energy. Connect with friends and family. 5. Get into the habit of meditating and mindfulness while doing everything. 6. Go outside and connect with nature. C. Prescription medications Patient was educated on the use of prescription medications for medical weight loss. This is a growing list and includes phentermine, Topamax,Qsymia, contrave, belviq and saxenda, wegovy All prescription medications could have side effects including but not limited to kidney stones, seizure disorder cardiac arrhythmias heart attack pancreatitis etc. etc.. Patient was encouraged to read the prescription insert and have coaching with their pharmacist and make an informed decision about taking medication and know that these medications are being prescribed with good intentions and we do not know how a patient would react to her medication. Sudden medications are FDA approved for weight loss and there is also off label use depending on patient's inability to afford medications in an attempt to lose weight D. Behavioral counseling was done to establish a relationship between food and an mood. Patient was provided information about local counseling and psychiatry and Dr Morris at [email or web address]. We would like to cover regular topics and build on low glycemic eating exercise mindful eating, using yoga and meditation along with deep breathing and connecting with friends and family. E. MASS PAT reviewed, Patient's current medications were reviewed and opinion was given on medication that can cause weight gain and can be substituted F. Patient was assessed for risk with obesity including and not limiting to atherosclerosis heart disease stroke kidney disease, restrictive lung disease, irritable bowel syndrome and overall mortality. Risk of developing prediabetes diabetes and metabolic syndrome was discussed G. Therapeutic plan: We have decided to make therapeutic plan which would include choosing wisely on calories restricting portion getting active, tracking weight, getting good quality sleep and working on time management H. Patient will follow up in (4) weeks for weight management Of note, some information is being carried forward from prior records for informational purposes only and is being cited so that efficiency, safety and quality of the patient's care is not compromised This note was prepared using voice recognition software and direct typing Please excuse inadvertent wrapping machine operator or typing errors, or uncorrected word substitutions Although every attempt has been made by the provider to proofread this document, occasional misspellings and typographical errors may still be present Due to the previous pandemic, and the use of personal protective equipment (PPE) This may decrease voice recognition accuracy Inadvertent wrapping machine operator errors may occur PLAN OF TREATMENT No Information Progress Notes * Miriam WHITEHEADDOB:1970 ( 53 yo F)Acc No.[id number]:01/05/2023 Patient:??Miriam WHITEHEAD Provider:??JINA BURNHAM NP :1970?Age:52 Y?Sex:Fe male Date:01/05/2023 [facility] Subjective: * Chief Complaints: * ? * HPI: ?Constitutional:? Patient is here today for a weight management consultation visit ?Patient seen and examined. ? Full past medical history, social history, family history, ?allergies and current medications were reviewed and updated. ?Body composition analysis reviewed today, as expected increased BMI, ?visceral adiposity, fat mass index, waist cirumference ?Good skeletal mass composition, Good water composition ?Caloric energy expenditure discussed ?we discussed the importance of protein calorie nutrition, maintaning muscle mass, vit b12, biotin, iron ?while on GLP-1 medications, dual incretins, appetitite suppressants ?01/05/2023: Weight lbs, BMI: ?Patient referred to us from . ?Patient works as ?Highest weight: lbs ?Lowest weight: lbs ?Goal weight: lbs ?RODERICK screening/STOP-BANG/[place], * ?Metabolic workup:* ?Thyroid? No recent screening ?Diabetes? No recent screening ?Has not had an echocardiogram recently. ?Diet: ?Exercise: Currently steps daily. ?Non-smoker. ?ETOH use:. * ROS:?All Other Systems:?Review of Systems (ROS)??All [...] extremities, sensory exam intact.? Assessment: * Assessment: Total time spent today was 6 0 minutes of which greater than 50% was spent on coordinating and counseling We are a board certified obesity and weight management practice Patient has trialed behavioral modification, dietary restrictions and exercise for a minimum of 3 months Patient counseled regarding effects of GLP/GIP-1 agonists, and other FDA approved wgt loss meds with regards to a multifactorial approach of weight loss as mentioned above and not solely appetite suppression. We have discussed the mechanism of GLP-1's/GIP, dual incretins I think this would be fantastic option for her given her metabolic workup and body composition We have discussed the risks and benefits and side effects including/and not limited to Sarcopenia, intestinal obstruction, constipation, nausea, lethargy, headache Discussed importance of protein consumption for muscle maintenance as well as strength and resistance training ,probiotics, B12 complex biotin , iron and other nutrients, To help avoid telogen effluvium There is no history of medullary thyroid cancer or multiple endocrine neoplasia There is also no history of cardiovascular disease, hypertension, palpitations, or arrhythmias In the setting of potential stimulant/amphetamine use such as phentermine We have also discussed risks and benefits, and the use of compounded medications to help offset the national shortages as well as financial implications vs trade name drugs GLP must be discontinued upon initiation We have discussed the lifelong requirement of nutritional supplementation And adherence to an exercise regimen as well as importance of follow-up The patient understands and agrees Patient has been found to be obese with a BMI of (). Patient has class () obesity. Patient was reassured and welcomed to the practice. We discussed that we stress a hollistic medical approach with emphasis on lifestyle modification. Patient was informed that a healthy lifestyle with exercise and good eating habits can help reduce his risk of medical complications. He is explained that obesity increases his risk of diabetes, cardiovascular disease, or organ damage. We spent a lot of time discussing the relationship between food, exercise, sleep, mental health and obesity. Patient was counseled on the importance EATING local, organic food when possible. Patient was educated on clean 15 and dirty dozen. I provided information about reading books called The Food Rules by Amaury Toth and Eat Fat Get Lean by Dr Baldomero Hamilton. Self education is important in the journey for weight management. Patient was offered diagnostic testing. We want to measure visceral adiposity, advanced body composition, adverse lipids, fatty acid balance, risk for heart disease and atherosclerosis, markers of inflammation and genetic susceptibility. Patient was counseled on weight management and was advised to lose weight using A. Meal Replacement Products We discussed the lifelong requirement of nutritional supplementation and adherence to an exercise regimen as well as importance of dietary f/u Patient was educated on the replacement products called optifast. This is a good way of taking fixed amount of calories. It has been shown in studies to be ineffective weight management tool. We also recommend maintaining adequate protein intake and muscle composition, 1.5mg/kg This however has to be coupled with lifestyle intervention as well as laboratory data and EKG monitoring. It is impossible to know how a person will tolerate complete meal replacement. The side effects of meal replacement and weight loss could include syncopal attacks, dizziness, gallstones, potential cholecystectomy, possible heart attack and even . The benefits of meal replacement would be potential weight loss but no guarantees can be made. Meal replacement products are not covered by insurance. Once the patient has bought these products we cannot return them B. Lifestyle management which includes several strategies as below 1. Eat a low carbohydrate good fat good protein diet. Eliminate refined carbohydrates from the diet. Continue blood sugar and sugared beverages. Eat local organic when possible. Cook your own meals. Read food labels. None about healthy snacks. Portion control and food with low glycemic index 2. Exercise regularly. Try to get at least 6000 steps a day. Use a predominant to track activity level. Consider using apps like Adallom, myfitWave Systemspal, lose it, stick as needed for self-monitoring and weight management. Consider group exercises. Consider hiring a personal security specialist. Regular exercise is correa to sustainable health and prevents as a buffer against weight regain 3. Sleep is most important for healing. Tried to sleep at least 8 hours a night. A good quality sleep needs a sleep ritual with ideal room temperature of around 68. It might help to take a shower and have no electronics in the room and sleep in a very dark room without artificial light. Start her sleep routine and get up early in the morning and go to bed on time 4. Make a social connection. Surround yourself with positive people with positive energy. Connect with friends and family. 5. Get into the habit of meditating and mindfulness while doing everything. 6. Go outside and connect with nature. C. Prescription medications Patient was educated on the use of prescription medications for medical weight loss. This is a growing list and includes phentermine, Topamax,Qsymia, contrave, belviq and saxenda, wegovy All prescription medications could have side effects including but not limited to kidney stones, seizure disorder cardiac arrhythmias heart attack pancreatitis etc. etc.. Patient was encouraged to read the prescription insert and have coaching with their pharmacist and make an informed decision about taking medication and know that these medications are being prescribed with good intentions and we do not know how a patient would react to her medication. Sudden medications are FDA approved for weight loss and there is also off label use depending on patient's inability to afford medications in an attempt to lose weight D. Behavioral counseling was done to establish a relationship between food and an mood. Patient was provided information about local counseling and psychiatry and Dr Morris at [email or web address]. We would like to cover regular topics and build on low glycemic eating exercise mindful eating, using yoga and meditation along with deep breathing and connecting with friends and family. E. MASS PAT reviewed, Patient's current medications were reviewed and opinion was given on medication that can cause weight gain and can be substituted F. Patient was assessed for risk with obesity including and not limiting to atherosclerosis heart disease stroke kidney disease, restrictive lung disease, irritable bowel syndrome and overall mortality. Risk of developing prediabetes diabetes and metabolic syndrome was discussed G. Therapeutic plan: We have decided to make therapeutic plan which would include choosing wisely on calories restricting portion getting active, tracking weight, getting good quality sleep and working on time management H. Patient will follow up in (4) weeks for weight management Of note, some information is being carried forward from prior records for informational purposes only and is being cited so that efficiency, safety and quality of the patient's care is not compromised This note was prepared using voice recognition software and direct typing Please excuse inadvertent wrapping machine operator or typing errors, or uncorrected word substitutions Although every attempt has been made by the provider to proofread this document, occasional misspellings and typographical errors may still be present Due to the previous pandemic, and the use of personal protective equipment (PPE) This may decrease voice recognition accuracy Inadvertent wrapping machine operator errors may occur. Plan: * Treatment: * Procedure Codes:??47850 NO S HOW OFFICE VISIT * Images: Billing Information: * Visit Code:?? * Procedure Codes:?? 71304 NO SHOW OFFICE VISIT. * Sign off status: Pending * Provider:??JINA BURNHAM NP Date:??12/23 History and Physical Notes * HPI (History of Present Illness) Category Sub-Category Detail Notes Category Not es Constitutional Patient is here today for a weight management consultation visit Patient seen and examined. Full past medical history, social history, family history, allergies and current medications were reviewed and updated. Body composition analysis reviewed today, as expected increased BMI, visceral adiposity, fat mass index, waist cirumference Good skeletal mass composition, Good water composition Caloric energy expenditure discussed we discussed the importance of protein calorie nutrition, maintaning muscle mass, vit b12, biotin, iron while on GLP-1 medications, dual incretins, appetitite suppressants 01/05/2023: Weight lbs, BMI: Patient referred to us from . Patient works as Highest weight: lbs Lowest weight: lbs Goal weight: lbs RODERICK screening/STOP-BANG/[place], * Metabolic workup:* Thyroid? No recent screening Diabetes? No recent screening Has not had an echocardiogram recently. Diet: Exercise: Currently steps daily. Non-smoker. ETOH use: Examination Category Sub-Category Detail Notes Category Not [...]
--- OUTSIDE RECORDS SUMMARY | 2024-02-10 07:35 | XMS_ITS | Patient Health Record ---
Author Organization [facility] Address [address] [place] [address] REASON FOR REFERRAL No Information PLAN OF TREATMENT No Information Insurance Providers Payer Name Payer Address Payer Phone Subscriber Number Group Number Insured Name Patient Relationship to Insured Coverage Start Date Coverage End Date Blue Benefits Admin [address] [address] [place] [address] [id number] Miriam Whitehead Self - patient is the insured
== END 2024-02-10 07:33 | disposition home or self-care (01) ==
LOC: HO.MAMMO 07:32
PROVIDERS: PCP Physician Assistant; Visit Provider Physician Assistant
DX: Z12.31 Encounter for screening mammogram for malignant neoplasm of breast (principal)
CPT/HCPCS: 77063; 77067

== ENCOUNTER 2024-02-29 08:08 | Outpatient (REF) | payer OTHER, SELFPAY ==
--- NOTE | ~2024-02-29 | MM_ITS ---
EXAMINATION: Dual-Energy X-ray Absorptiometry - Bone Density Study HISTORY: Estrogen deficiency TECHNIQUE: Hu[place]y Dual energy absorptiometry (DEXA) of the lumbar spine, total left hip, and femoral neck was performed. COMPARISON: There are no prior studies for comparison. FINDINGS: The bone mineral density of the lumbar spine is 1.081 with a T-score of -0.8, and a Z-score of -0.4. The bone mineral density of the left total hip is 0.912 with a T-score of -0.8, and a Z-score of -0.3. The bone mineral density of the left femoral neck is 0.849 with a T-score of -1.4, and a Z-score of -0.6. FRACTURE RISK: The FRAX index suggests a risk of major osteoporotic fracture of 3.2%, and of hip fracture 0.2%. MM/XR DEXA axial skeleton IMPRESSION: Based on bone mineral density, and according to World Health Organization (WHO) criteria, the diagnosis is consistent with osteopenia. All bone density values are in grams per centimeter squared. At this facility, the least significant change in BMD with 95% confidence is 0.022 at the lumbar spine, 0.027 at the hip, and 0.023 at the distal 1/3 radius. Electronically signed by: Blaine Garza MD 02/29/2024 10:25 AM [facility]
--- OUTSIDE RECORDS SUMMARY | 2024-02-29 08:13 | XMS_ITS ---
Author Organization [facility] Address [address] [place] [address] Care Team Providers Care Coal Carrier Name Role Phone JINA BURNHAM Unavailable [phone] Encounters Encounter Location Date Provider Diagnosis [facility] [address] [facility] [address] [place] [address] 01/05/2023 JINA BURNHAM ASSESSMENTS Encounter Date Diagnosis [...] track activity level. Consider using apps like Comic Wonder, myfitnesspal, lose it, stick as needed for self-monitoring and weight management. Consider group exercises. Consider hiring a certified personal trainer. Regular exercise is correa to sustainable health [...] counseling and psychiatry and Dr Morris at [email or web address]. We would like to cover regular topics [...] software and direct typing Please excuse inadvertent staff weapons officer or typing errors, or uncorrected word substitutions Although every attempt has been made by the provider to proofread this document, occasional misspellings and typographical errors may still be present Due to the previous pandemic, and the use of personal protective equipment (PPE) This may decrease voice recognition accuracy Inadvertent staff weapons officer errors may occur PLAN OF TREATMENT No Information Progress Notes * Miriam WHITEHEADDOB:1970 ( 53 yo F)Acc No.[id number]:01/05/2023 Patient:??Miriam WHITEHEAD Provider:??JINA BURNHAM NP :1970?Age:52 Y?Sex:Fe male Date:01/05/2023 [facility] Subjective: * Chief Complaints: * ? * [...] ?Lowest weight: lbs ?Goal weight: lbs ?RODERICK screening/STOP-BANG/[place], * ?Metabolic workup:* ?Thyroid? No recent screening [...] track activity level. Consider using apps like Comic Wonder, myfitMedPropal, lose it, stick as needed for self-monitoring and weight management. Consider group exercises. Consider hiring a certified personal trainer. Regular exercise is correa to sustainable health [...] counseling and psychiatry and Dr Morris at [email or web address]. We would like to cover regular topics [...] software and direct typing Please excuse inadvertent staff weapons officer or typing errors, or uncorrected word substitutions Although every attempt has been made by the provider to proofread this document, occasional misspellings and typographical errors may still be present Due to the previous pandemic, and the use of personal protective equipment (PPE) This may decrease voice recognition accuracy Inadvertent staff weapons officer errors may occur. Plan: * Treatment: * Procedure Codes:??05725 NO S HOW OFFICE VISIT * Images: Billing Information: * Visit Code:?? * Procedure Codes:?? 69701 NO SHOW OFFICE VISIT. * Sign off [...] Lowest weight: lbs Goal weight: lbs RODERICK screening/STOP-BANG/[place], * Metabolic workup:* Thyroid? No recent screening Diabetes? No recent screening Has not had an echocardiogram recently. Diet: Exercise: Currently steps daily. Non-smoker. ETOH use: Examination Category Sub-Category Detail Notes Category Not es General Examination GENERAL APPEARANCE: in no ac tetlin distress, well developed, well nourished HEAD: normocephalic, [...]
--- OUTSIDE RECORDS SUMMARY | 2024-02-29 08:13 | XMS_ITS ---
Author Organization [facility] Address [address] [place] [id number] Care Team Providers Care Wheat Washer Name Role Phone JINA BURNHAM Unavailable [phone] Encounters Encounter Location Date [facility] [address] [place] [address] 12/31/2022 JINA BURNHAM ASSESSMENTS Encounter Date Diagnosis [...] log exercise and discussed fitness Apps like Arideaspal which can help keep log off calories [...] software and direct typing Please excuse inadvertent air hose coupler or typing errors, or uncorrected word substitutions Although every attempt has been made by the provider to proofread this document, occasional misspellings and typographical errors may still be present Due to the previous pandemic, and the use of personal protective equipment (PPE) This may decrease voice recognition accuracy Inadvertent air hose coupler errors may occur PLAN OF TREATMENT No Information Progress Notes * Miriam HERNANDEZDOB:1970 ( 53 yo F)Acc No.[id number]:12/31/2022 Progress Notes Patient:??Miriam HERNANDEZ Provider:??JINA BURNHAM NP :1970?Age:52 Y?Sex:Fe male Date:12/31/2022 Address[place] [id number] Subjective: * Chief Complaints: * ? * [...] log exercise and discussed fitness Apps like [employer] which can help keep log off calories [...] software and direct typing Please excuse inadvertent air hose coupler or typing errors, or uncorrected word substitutions Although every attempt has been made by the provider to proofread this document, occasional misspellings and typographical errors may still be present Due to the previous pandemic, and the use of personal protective equipment (PPE) This may decrease voice recognition accuracy Inadvertent air hose coupler errors may occur. Plan: * Treatment: * Procedure Codes:??41492 NO S HOW OFFICE VISIT * Images: Billing Information: * Visit Code:?? * Procedure Codes:?? 79037 NO SHOW OFFICE VISIT. * Sign off [...] General Examination GENERAL APPEARANCE: in no ac [place] distress, well developed, well nourished HEAD: normocephalic, [...]
--- OUTSIDE RECORDS SUMMARY | 2024-02-29 08:13 | XMS_ITS | Patient Health Record ---
Author Organization [facility] Address [address] [place] [address] REASON FOR REFERRAL No Information PLAN OF TREATMENT No Information Insurance Providers Payer Name Payer Address Payer Phone Subscriber Number Group Number Insured Name Patient Relationship to Insured Coverage Start Date Coverage End Date Blue Benefits Admin [address] [address] [place] [address] [id number] Miriam Whitehead Self - patient is the insured
== END 2024-02-29 08:09 | disposition home or self-care (01) ==
LOC: HO.MAMMO 08:08
PROVIDERS: PCP Physician Assistant; Visit Provider Physician Assistant
DX: Z13.820 Encounter for screening for osteoporosis (principal); N95.1 Menopausal and female climacteric states; E28.39 Other primary ovarian failure
CPT/HCPCS: 77080

== ENCOUNTER → 2024-02-29 08:15 | Outpatient (BNV) | payer OTHER, SELFPAY | PROVIDERS: PCP Physician Assistant; Visit Provider Radiology Diagnostic Radiology | DX: M85.89 Other specified disorders of bone density and structure, multiple sites (principal) | CPT/HCPCS: 77080 ==

== ENCOUNTER 2024-03-16 09:48 | Outpatient (REF) | payer OTHER, SELFPAY ==
--- NOTE | ~2024-03-16 | XR_ITS ---
EXAMINATION: XR SHOULDER 2 OR MORE VIEWS RIGHT HISTORY: M25.511 - Pain in right shoulder COMPARISON: There are no prior studies available for comparison. FINDINGS: Two views of the right shoulder are submitted. Osseous mineralization is normal. There is no fracture or dislocation. The glenohumeral and acromioclavicular joint spaces are preserved. The soft tissues are unremarkable. XR/XR shoulder RT min 2V IMPRESSION: Unremarkable examination of the right shoulder. Electronically signed by: Blaine Garza MD 03/16/2024 02:43 PM EST
== END 2024-03-16 09:49 | disposition home or self-care (01) ==
LOC: HO.HOSX 09:48
PROVIDERS: Visit Provider Physical Medicine & Rehabilitation
DX: M25.511 Pain in right shoulder (principal)
CPT/HCPCS: 73030

== ENCOUNTER 2024-03-16 09:59 | Outpatient (AMB) | payer OTHER, SELFPAY ==
--- NOTE | 2024-03-16 10:10 | MHC.OFFVIS ---
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 The pain started 3 months ago but she denies injury. She reports the pain is sharp pain with any movement. She had x rays updated in the office today. She takes advil to help with the pain, she reports minimal relief. Allergies No Known Allergies Allergy (Verified 03/16/24 10:12) Medication List - Last Reconciled 03/16/24 by Cayla Mensah RN albuterol sulfate 90 mcg/actuation 2 puffs inhalation Q6H PRN cyclobenzaprine 10 mg PO Q8H PRN 10 days ondansetron 4 mg PO Q8H PRN 10 days phentermine 15 mg PO DAILY 30 days trazodone 50 mg PO BEDTIME PRN HPI Comments Details: Miriam is here for acute onset right shoulder pain 3 months ago. Denies any inciting injuries. Us more on anterior aspect of shoulder radiating down to the arm, initially having paresthesias. But no more numbness in fingers now. Some lateral neck pain but nonradicular. Pain has improved, but could still get 7-10/10 pain at times. 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 MSK: Inspection reveals appropriate head and neck positioning. No pain with palpation over the neck musculature. Tender along right proximal biceps insertion. No redness, inflammation/swelling, warmth. Cervical ROM was full. Spurling's sign negative. Bilateral shoulder ROM WNL. No ligamentous laxity or crepitance. No increased effusion. Empty can test is negative. Drop arm test is negative. Speed's test is positive right. Neer's test is negative. Hawkin's test is negative. Strength is 5/5 in all muscle groups tested. No increased tone noted. Neurological: Neurologic examination of the upper and lower extremities was nonfocal with intact sensation, muscle stretch reflexes and without focal motor deficits . Fritz?s negative bilaterally. Results Reviewed Results Reviewed: I independently reviewed the results of the following: Right shoulder x-ray done today in the office unremarkable, no fracture. Await official reading. Assessment & Plan Assessment & Plan (1) Biceps tendinitis of right shoulder: Code(s): M75.21 - Bicipital tendinitis, right shoulder Category: Medical Plan Exam and history suggestive of right bicipital tendinitis. No other signs for other rotator cuff injury. X-rays look unremarkable, although waiting for official reading. Discussed treatment plan including exercises or physical therapy, or injection. Since pain is getting better, she decided to wait out on the injection. I will give her exercises she can do safely at home. Assessment and plan discussed with patient, and patient was agreeable. All questions were answered thoroughly. Abeba Kaur MD, RIVAS Board Certified, [place] Board [employer] Medicine and Rehabilitation (ABPMR) Board Certified, [place] Board of Electrodiagnostic Medicine (ABEM) Orders: Orders XR shoulder RT min 2V Today M25.511 - Pain in right shoulder Medications: New ibuprofen 800mg every 8 hours for 7 days, with full stomach 800 mg PO Q8H 21 tabs 1RF Coding Level of Care Code New Pt Level 3 (64861) Diagnoses Biceps tendinitis of right shoulder M75.21
[2024-03-16 10:13] VITALS: BMI 27.1
== END 2024-03-16 10:43 | disposition home or self-care (01) ==
PROVIDERS: PCP Physician Assistant; Visit Provider Physical Medicine & Rehabilitation
DX: M75.21 Bicipital tendinitis, right shoulder (principal)
CPT/HCPCS: 99203

== ENCOUNTER 2024-08-16 07:33 | Outpatient (REF) | payer OTHER, SELFPAY ==
--- OUTSIDE RECORDS SUMMARY | 2024-08-16 07:35 | XMS_ITS | Clinical Summary ---
Author Organization [facility] Address [address] [place] [address] Care Team Providers Care Premix Operator Concentrate Name Role Phone Pcp, No MD Primary Care Provider Unavailabl e Allergies No known active allergies Medications methylPREDNISol one (Medrol, Deep,) 4 mg tablet follow package directions 1 each 3 Active Social History Tobacco Use Types Packs/Day Years Used Date Smoking Tobacco: Never Assessed Comments Unknown Sex and Gender Information Value Date Recorded Sex Assigned at Not on file Legal Sex Female 8:34 PM EST Gender Identity Not on file Sexual Orientation Not on file Last Filed Vital Signs Vital Sign Reading Time Taken Comments Blood Pressure 113/70 02/05/2023 9:28 PM EST Pulse 54 02/05/2023 9:28 PM EST Temperature 36.8 C (98.3 F) 02/05/2023 9:28 PM EST Respiratory Rate 16 02/05/2023 9:28 PM EST Oxygen Saturation 95% 02/05/2023 9:28 PM EST Inhaled Oxygen Concentration - - Weight 74.8 kg (165 lb) 02/05/2023 9:20 PM EST Height 162.6 cm (5' 4 ) 02/05/2023 9:20 PM EST Body Mass Index 28.32 02/05/2023 9:20 PM EST Plan of Treatment Health Maintenance Due Date Last Done Comments Breast Cancer Screening 1970 CT Colonography 1970 Colonoscopy 1970 Colorectal Cancer Screening 1970 FIT-DNA (Cologuard) 1970 FIT 1970 FOBT 1970 Flex Sigmoidoscopy - 5y 1970 HIV Screening 1970 Hepatitis C Screening 1988 Hepatitis B Vaccines (1 of 3 - 19+ 3-dose series) 1989 Pneumococcal Vaccine, 50+ Ye ars (1 of 2 - PCV) 1989 Pap Smear 04/26/1991 Cervical Cancer Screening 2000 HPV/Cotest 2000 Zoster Vaccines (1 of 2) 2020 DTaP,Tdap,and Td Vaccines (2 - Td or Tdap) 04/14/2023 04/14/2013 COVID-19 Vaccine (1 - 2023-2 5 season) 2023 Influenza Vaccine (Season Ended) 2024 HPV Vaccines Aged Out No longer eligi ble based on patient's age to complete this topic Hepatitis A Vaccines Aged Out No long er eligible based on patient's age to complete this topic MMR Vaccines Aged Out No longer eligi ble based on patient's age to complete this topic Meningococcal Vaccine Aged Out No bang janelle eligible based on patient's age to complete this topic Insurance ANTHEM - OUT OF STATE Care Teams Premix Operator Concentrate Relationship Specialty Start Date End Date Pcp, MD [address] [place] [address] PCP - General Internal Medicine 02/05/23
[2024-08-16 09:55] LABS: Basophils Percent Auto 0.3 % (0-2); Eosinophils Absolute Auto 0.1 X10*3/uL (0.0-0.4); Eosinophils Percent Auto 1.5 % (0-4); Hematocrit 40.5 % (37.0-47.0); Hemoglobin 12.9 g/dl (12.0-16.0); Imm Gran Abs Auto 0.01 X10*3/uL (0.00-0.03); Imm Gran Pct Auto 0.1 % (0.0-0.4); Lymphocytes Absolute Auto 4.2 X10*3/uL (1.2-4.9); Lymphocytes Percent Auto 61.1 % (20-40); MANUAL DIFF FLAG SCAN; Mean Corpuscular HGB Conc 31.9 g/dl (31.0-35.0); Mean Corpuscular Hemoglobin 27.6 pg (27.0-33.0); Mean Corpuscular Volume 86.7 fL (80.0-98.0); Mean Platelet Volume 11.5 fL (9.4-12.3); Monocytes Absolute Auto 0.5 X10*3/uL (0.1-1.2); Monocytes Percent Auto 7.3 % (2-11); Neutrophils Absolute Auto 2.1 x10*3/uL (2.0-8.3); Neutrophils Percent Auto 29.7 % (45-73); Platelet Count 244 X10*3/uL (160-400); Red Blood Count 4.67 X10*6/uL (4.20-5.50); Red Cell Distribution Width 13.6 % (11.0-16.0); SCAN SMEAR FLAG 1; White Blood Count 6.9 X10*3/uL (4.8-10.8)
[2024-08-16 10:01] LABS: Estimated Average Glucose 111 mg/dL; Hemoglobin A1c % 5.5 % (<6.0)
[2024-08-16 10:17] LABS: Alanine Aminotransferase 32 U/L (0-31); Albumin Level 4.6 g/dL (3.5-5.0); Alkaline Phosphatase 75 U/L (39-117); Anion Gap 12 (12-20); Aspartate Amino Transferase 29 U/L (5-31); Bilirubin Total 0.4 mg/dL (0.0-1.0); Blood Urea Nitrogen 10 mg/dL (9-16); Calcium 9.5 mg/dL (8.4-10.2); Carbon Dioxide 26 mmol/L (22-29); Chloride 107 mmol/L (96-108); Cholesterol 215 mg/dL (<200); Estimated Glomerular Filt Rate > 60; Glucose Random 83 mg/dL (60-115); HDL Cholesterol 62 mg/dL (>40); Iron 70 mcg/dL (30-160); LDL Cholesterol Calculated 132 mg/dL (<100); Percent Iron Saturation 26 % (15-50); Potassium 3.9 mmol/L (3.3-5.1); Sodium 141 mmol/L (135-145); Total Iron Binding Capacity 269 mcg/dL (228-428); Total Protein 7.4 g/dL (6.5-8.0); Triglycerides 107 mg/dL (<150); Unsaturated Iron Binding 199 ug/dL
[2024-08-16 10:27] LABS: SLIDE REVIEW VERIFIED
[2024-08-16 10:28] LABS: Ferritin 88 ng/mL (10-250); TSH reflex Free T4 2.75 uIU/mL (0.32-4.0)
[2024-08-16 10:41] LABS: Vitamin B12 379 pg/mL (200-900)
== END 2024-08-16 07:34 | disposition home or self-care (01) ==
LOC: HO.10HDL 07:33
PROVIDERS: Visit Provider Physician Assistant
DX: E11.42 Type 2 diabetes mellitus with diabetic polyneuropathy (principal); E11.65 Type 2 diabetes mellitus with hyperglycemia; E66.3 Overweight
CPT/HCPCS: 36415; 80053; 80061; 82607; 82728; 82746; 83036; 83540; 84443; 85025

== ENCOUNTER 2025-01-29 11:31 | Outpatient (REF) | payer OTHER, SELFPAY ==
[2025-01-29 12:58] LABS: MANUAL DIFF FLAG NO
[2025-01-29 13:07] LABS: Hematocrit 41.7 % (37.0-47.0); Hemoglobin 12.8 g/dl (12.0-16.0); Imm Gran Abs Auto 0.00 X10*3/uL (0.00-0.03); Imm Gran Pct Auto 0.0 % (0.0-0.4); Lymphocytes Absolute Auto 4.0 X10*3/uL (1.2-4.9); Mean Corpuscular HGB Conc 30.7 g/dl (31.0-35.0); Mean Corpuscular Hemoglobin 27.1 pg (27.0-33.0); Mean Corpuscular Volume 88.2 fL (80.0-98.0); NRBC Abs Auto 0.000 X10*3/uL (0.0-0.012); NRBC Pct Auto 0.0 /100WBC (0.0-0.2); Platelet Count 280 X10*3/uL (160-400); Red Blood Count 4.73 X10*6/uL (4.20-5.50); White Blood Count 8.0 X10*3/uL (4.8-10.8)
[2025-01-29 13:24] LABS: Alanine Aminotransferase 45 U/L (0-31); Albumin Level 4.9 g/dL (3.5-5.0); Alkaline Phosphatase 83 U/L (39-117); Anion Gap 10 (12-20); Aspartate Amino Transferase 34 U/L (5-31); Blood Urea Nitrogen 9 mg/dL (9-16); Calcium 9.8 mg/dL (8.4-10.2); Carbon Dioxide 28 mmol/L (22-29); Chloride 104 mmol/L (96-108); Estimated Glomerular Filt Rate > 60; Iron 68 mcg/dL (30-160); Magnesium 2.0 mg/dL (1.6-2.6); Percent Iron Saturation 25 % (15-50); Potassium 4.2 mmol/L (3.3-5.1); Sodium 138 mmol/L (135-145); Total Iron Binding Capacity 276 mcg/dL (228-428); Total Protein 8.0 g/dL (6.5-8.0); Unsaturated Iron Binding 208 ug/dL
[2025-01-29 13:47] LABS: Erythrocyte Sedimentation Rate 15 MM/HR (0-20)
[2025-01-29 13:52] LABS: Folate 8.9 ng/mL (> or = 4.0); Vitamin B12 367 pg/mL (200-900)
--- OUTSIDE RECORDS SUMMARY | 2025-01-29 19:34 | XMS_ITS | Clinical Summary ---
Author Organization [facility] Address [address] [place] [id number] Care Team Providers Care Air Traffic Coordinator Name Role Phone Pcp, No MD Primary [...] Tdap) 04/14/2023 04/14/2013 COVID-19 Vaccine (1 - 2024-2 6 season) 2024 Influenza Vaccine (#1) 2024 HPV Vaccines Aged Out No longer [...] ANTHEM - OUT OF STATE Care Teams Air Traffic Coordinator Relationship Specialty Start Date End Date Pcp, MD [address] [place] [address] PCP - General Internal Medicine 02/05/23
[2025-01-30 06:44] LABS: Lyme Abs Screen <0.90 index
== END 2025-01-29 11:32 | disposition home or self-care (01) ==
LOC: HO.10HDL 11:31
PROVIDERS: Visit Provider Physician Assistant
DX: Z01.84 Encounter for antibody response examination (principal); Z13.0 Encounter for screening for diseases of the blood and blood-forming organs and certain disorders involving the immune mechanism; R53.83 Other fatigue; R59.0 Localized enlarged lymph nodes; W57.XXXA Bitten or stung by nonvenomous insect and other nonvenomous arthropods, initial encounter
CPT/HCPCS: 36415; 80053; 82607; 82746; 83540; 83735; 84443; 85025; 85652; 86617; 86618